=== PATIENT | female | born 1965 ===

== ENCOUNTER 2019-11-24 09:16 | Emergency (ER) | payer OTHER ==
--- NOTE | 2019-11-24 09:23 | EDM.PDOC ---
ED HPI GENERAL MEDICAL PROBLEM - General Chief Complaint: Lower Extremity Injury/Pain Stated Complaint: right lower leg pain Time Seen by Provider: 11/24/19 09:20 Source of Information: Reports: Patient. Denies: Old Records (No [facility] records available) History Limitations: Reports: No Limitations - History of Present Illness INITIAL COMMENTS - FREE TEXT/NARRATIVE: The patient was brought to the emergency room via transport vehicle from [facility] for evaluation of a Workmen's Compensation injury at about 08:15 hours this morning. Note that the patient was unloading parts into a cart when the about 100 pound cart fell over hitting the patient on the left side, however this did result in a fall into some boxes with right sided knee, anterior tibial, and nonspecific foot pain as a result of this injury. No history of head injury, loss of consciousness, neck/back pain, neurological deficits, or other complaints or injuries. She has not injured this area in the past. The [facility] nurse did place a posterior right ankle splint and apply ice packs with an Del wraps prior to patient's transport to this facility. The patient denies any chest pain/pressure, heart flutter, dizziness, orthostasis, orthopnea, diaphoresis, paresthesias, recent decreased exercise tolerance, or any other anginal-type symptoms. No recent history of abdominal pain, heartburn, nausea, diarrhea, melena, gross hematochezia, or any food intolerance, including fatty foods, etc.. She denies neck gross hematuria, colic, or other UTI symptoms. The patient also denies any recent fever, cough, wheezing, dyspnea, etc... Onset: Today, Sudden Onset Date: 11/24/19 Onset Time: 08:15 Duration: Constant Location: Reports: Lower Extremity, Right. 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(s) right ochoa Pain Score (Numeric/FACES): 7 - Related Data Allergies Allergy/AdvReac Type Severity Reaction Status Date / Time No Known Allergies Allergy Verified 11/24/19 09:27 Home Meds: Home Meds Calcium Carbonate [Calcium] 500 mg PO DAILY 11/24/19 [History] Multivitamin [Daily Multiple Vitamin] 1 each PO DAILY 11/24/19 [History] Pantoprazole Sodium [Protonix] 40 mg PO DAILY 11/24/19 [History] Zolpidem [Ambien] 10 mg PO BEDTIME 11/24/19 [History] Past Medical History HEENT History: Reports: Impaired Vision, Other (See Below) Other HEENT History: Patient wears glasses and soft contact lenses. 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 with second , otherwise Full term without complications during pregnancies or deliveries. No D&Cs required for first trimester SABs 2. Musculoskeletal History: Reports: Arthritis, Fracture, Osteoarthritis, Other ( See Below). Denies: Back Pain, Chronic, Gout, Neck Pain, Chronic, RA, SLE Other Musculoskeletal History: Left foot digit #5 phalangeal fracture in 1997. Neurological History: Reports: Other (See Below) Other Neuro History: Chronic insomnia. Endocrine/Metabolic History: Reports: Obesity/BMI 30+ Social & Family History - Tobacco Use Smoking Status *Q: Former Smoker Tobacco Use Within Last Twelve Months: No Years of Tobacco use: 32 Packs/Tins Daily: 2 Packs/Tins Daily Comment: Smoked between 12 packs per day between ages 10 and 42. Used Tobacco, but Quit: No Smoking Cessation Information Provided To Patient: No Second Hand Smoke Exposure: No Second Hand Smoke Education Provided: No - Living Situation & Occupation Living situation: Reports: (2008, 3 children), Alone Occupation: Employed ([employer]) Review of Systems - Review of Systems Review Of Systems: Comprehensive ROS is negative, except as noted in HPI. ED EXAM, GENERAL - Physical Exam Exam: See Below Exam Limited By: No Limitations General Appearance: Alert, WD/WN, No Apparent Distress Head: Atraumatic, Normocephalic. No: Facial Swelling, Facial Tenderness, Sinus Tenderness Neck: Normal Inspection, Supple, Non-Tender, Full Range of Motion. No: Lymphadenopathy (L), Lymphadenopathy (R), Thyromegaly Respiratory/Chest: No Respiratory Distress, Lungs Clear, Normal Breath Sounds, No Accessory Muscle Use, Chest Non-Tender. No: Pleural Rub, Retractions Cardiovascular: Normal Peripheral Pulses, Regular Rate, Rhythm, No Edema, No Gallop, No JVD, No Murmur, No Rub. No: Gallop/S3, Gallop/S4, Friction Rub Peripheral Pulses: 2+: Radial (L), Radial (R), Dorsalis Pedis (L), Dorsalis Pedis (R) GI/Abdominal: Normal Bowel Sounds, Soft, Non-Tender, No Organomegaly, No Distention, No Abnormal Bruit, No Mass, Pelvis Stable, Other (Obese). No: Guarding (Female) Exam: Deferred Rectal (Female) Exam: Deferred Back Exam: Normal Inspection, Full Range of Motion. No: CVA Tenderness (L), CVA Tenderness (R), Muscle Spasm Extremities: No Pedal Edema, Other (1.5 cm subcutaneous hematoma over the right mid anterior tibial region with 1 cm superficial abrasion/laceration with no evidence of deformity, crepitation, fracture, etc.. No right foot or ankle abnormalities including instability, localized tenderness, etc., although nonspecific tenderness in the proximal plantar calcaneal region consistent with spur with no evidence of acute injury in this location.). No: Joint Swelling ( No right knee effusion, instability, localized tenderness with only minimal intrusion over the mid patella with no evidence of fracture, patient, etc. Negative anterior, Lacey's and pivot shift tests), Mac's Sign, Increased Warmth, Mottled Neurological: Alert, Oriented, CN II-XII Intact, Normal Cognition, Normal Gait, Normal Reflexes, No Motor/Sensory Deficits Psychiatric: Normal Affect, Normal Mood Skin Exam: Stud(s) (Bilateral auricular), Tattoo(s) (Multiple), Wound/Incision ( As above). No: Diaphoretic, Ecchymosis, Erythema, Petechiae Lymphatic: No Adenopathy Course - Vital Signs Last Recorded V/S: Last Vital Signs Temp 36.6 C 11/24/19 09:18 Pulse 72 11/24/19 09:18 Resp 18 11/24/19 09:18 BP 124/85 11/24/19 09:18 Pulse Ox 98 11/24/19 09:18 Vital Signs - 24 hr 11/24/19 09:18 Temperature [ 36.6 C Temporal] Pulse, 72 Peripheral [ Right Pulse Oximetry] Respiratory 18 Rate Blood Pressure 124/85 [Right Upper Arm] O2 Sat by Pulse 98 Oximetry - Orders/Labs/Meds Orders: Active Orders 24 hr Category Date Time Status Vaccines to be Administered [RC] PER UNIT ROUTINE Care 11/24/19 09:26 Active Tibia Fibula Rt [CR] Stat Exams 11/24/19 09:23 Taken Durable Medical Equipment for Discharge [DME for Oth 11/24/19 09:36 Ordered Discharge] [COMM] Routine Obtain Past Medical Record [OM.PC] Routine Oth 11/24/19 09:23 Active Labs: None Meds: Medications Discontinued Medications Generic Name Dose Route Start Last Admin Trade Name Freq PRN Reason Stop Dose Admin Diphtheria/Tetanus/Acell Pertussis 0.5 ml 11/24/19 09:26 11/24/19 09:51 Adacel IM 11/24/19 09:27 0.5 ml .ONCE ONE Administration Neomycin/Polymyxin/Bacitracin 1 each 11/24/19 09:25 11/24/19 09:48 Triple Antibiotic Oint TOP 11/24/19 09:26 1 each ONETIME ONE Administration - Radiology Interpretation Free Text/Narrative:: X-rays of the right tibia and fibula, 2 views, shows no evidence of fracture, dislocation, effusions, etc. Departure - Departure Time of Disposition: 10:16 Disposition: Home, Self-Care 01 Condition: Good Clinical Impression: Laceration, Peptic reflux disease Contusion Qualifiers: Encounter type: initial encounter Contusion area: lower leg Laterality: right Qualified Code(s): S80.11XA - Contusion of right lower leg, initial encounter Osteoarthritis Qualifiers: Osteoarthritis location: multiple joints Osteoarthritis type: primary Qualified Code(s): M15.0 - Primary generalized (osteo)arthritis - Discharge Information *PRESCRIPTION DRUG MONITORING PROGRAM REVIEWED*: Not Applicable *COPY OF PRESCRIPTION DRUG MONITORING REPORT IN PATIENT JOSE: Not Applicable Instructions: Crutch Use, Adult, [id number], Contusion, [id number], VIS, Tetanus, Diphtheria, and Pertussis (Tdap) - [facility] [place] (11/09/2014) Referrals: Christiane Matos NP [Primary Care Provider] - Forms: ED Department Discharge Additional Instructions: 1. Followup with your regular provider in 10-14 days as directed. Bring these discharge instructions with you to that visit. 2. Tylenol 650 mg by mouth every 4 hours and/or OTC ibuprofen 2-3 tabs by mouth every 6 hours with food as directed./needed. You may stagger these medications for 48-72 hours only, which essentially means that you are receiving a pain medication about every 2 hours. 3. Del wrap, ice packs, and leg elevation as discussed with increased weightbearing and crutches to be used on an as-needed basis as tolerated. 4. Work excuse- See Form 5. Immediately after this visit verify that your cellular telephone's voicemail has been activated and is empty. Also verify that your home telephone 's answering machine is operating properly and has space to receive messages. Note that it is sometimes necessary for us to be able to contact you at a later date to discuss your medical care. 6. Please remember that we are ALWAYS here for you and want to answer any questions you may have. Feel free to call the hospital any time and we call you back SALAZAR. 7. Antibacterial soap wash/soak with subsequent antibacterial dressing such as Neosporin, etc. as directed 2 times per day until the wound or laceration site completely heals. Keep the area clean and dry with activity restrictions as discussed. Never use hydrogen peroxide for wound care. 8. Congratulations about stopping smoking. 9. Follow-up with your regular provider as already scheduled on 11/24 with influenza booster to be obtained at that time as discussed. Sepsis Event Note - Focused Exam Vital Signs: Vital Signs Temp Pulse Resp BP Pulse Ox 11/24/19 09:18 36.6 C 72 18 124/85 98 Date Exam was Performed: 11/24/19 Time Exam was Performed: 10:17 - Problem List & Annotations (1) Contusion SNOMED Code(s): 097953943 Code(s): T14.8XXA - OTHER INJURY OF UNSPECIFIED BODY REGION, INITIAL ENCOUNTER Status: Acute Priority: High Current Visit: Yes Onset Date: Annotation/Comment:: Minor right leg anterior tibial contusion as above. Workmen's Compensation and [employer] work excuse forms were completed. Activity restrictions, topical therapy, etc. were discussed as per discharge instructions. Qualifiers: Encounter type: initial encounter Contusion area: lower leg Laterality: right Qualified Code(s): S80.11XA - Contusion of right lower leg, initial encounter (2) Laceration SNOMED Code(s): 521606434 Code(s): IVG3731 - Status: Acute Priority: Medium Current Visit: Yes Onset Date: 11/24/19 Annotation/Comment:: DTaP given and is now due by patient history. Neosporin dressing placed by the emergency room nurse. Minor laceration/abrasion not requiring surgical repair. Wound care instructions were discussed. Patient apparently already has a follow-up appointment scheduled with her regular provider tomorrow line was encouraged to obtain her influenza booster SALAZAR. (3) Osteoarthritis SNOMED Code(s): 038193444 Code(s): M19.90 - UNSPECIFIED OSTEOARTHRITIS, UNSPECIFIED SITE Status: Chronic Priority: Medium Current Visit: Yes Annotation/Comment:: Otherwise stable by patient history with no evidence of other injuries. She may have a right foot calcaneal spur with follow-up, x-rays, as needed depending on her clinical course Qualifiers: Osteoarthritis location: multiple joints Osteoarthritis type: primary Qualified Code(s): M15.0 - Primary generalized (osteo)arthritis (4) Peptic reflux disease SNOMED Code(s): 596356073 Code(s): K21.9 - GASTRO-ESOPHAGEAL REFLUX DISEASE WITHOUT ESOPHAGITIS Status: Chronic Priority: Medium Current Visit: Yes Annotation/Comment:: Stable by patient history with current medical therapy. - Problem List Review Problem List Initiated/Reviewed/Updated: Yes - My Orders Last 24 Hours: My Active Orders 11/24/19 09:23 Tibia Fibula Rt [CR] Stat Obtain Past Medical Record [OM.PC] Routine 11/24/19 09:26 Vaccines to be Administered [RC] PER UNIT ROUTINE 11/24/19 09:36 Durable Medical Equipment for Discharge [DME for Discharge] [COMM] Routine - Assessment/Plan Last 24 Hours: My Active Orders 11/24/19 09:23 Tibia Fibula Rt [CR] Stat Obtain Past Medical Record [OM.PC] Routine 11/24/19 09:26 Vaccines to be Administered [RC] PER UNIT ROUTINE 11/24/19 09:36 Durable Medical Equipment for Discharge [DME for Discharge] [COMM] Routine Assessment:: As above Plan: As above. Extensive precautions were given to the patient, who is in agreement with the treatment plan. See Patient Instructions for further treatment and plan.
[2019-11-24] MEDS ORDERED: Bacitracin/Neomycin/Polymyxin B Oint 0.9 GM U/D Packet TOP ONE (09:25)
[2019-11-24] MEDS ORDERED: Diphtheria,Pertussis(Acell),Tetanus Vaccine 0.5 ML SDV IM ONE (09:26)
== END 2019-11-24 10:30 | disposition home or self-care (01) ==
LOC: LL.ED 09:16
DX: S81.811A Laceration without foreign body, right lower leg, initial encounter (principal); M15.0 Primary generalized (osteo)arthritis; K21.9 Gastro-esophageal reflux disease without esophagitis; E66.9 Obesity, unspecified; Z68.23 Body mass index [BMI] 23.0-23.9, adult; Z87.891 Personal history of nicotine dependence; Z79.899 Other long term (current) drug therapy; Z23 Encounter for immunization; W22.8XXA Striking against or struck by other objects, initial encounter; Y99.0 Civilian activity done for income or pay
CPT/HCPCS: 73590-RT; 90471; 90715; 99283-25